=== PATIENT | female | born 1975 | race American Indian/Alaskan Native ===

== ENCOUNTER 2019-07-02 07:12 | Day surgery (SDC) | payer BC, OTHER ==
[2019-07-02] MEDS ORDERED: SODIUM CHLORIDE 0.9% 1000 ML 1,000 ML IV SCH (08:00)
[2019-07-02] MEDS ORDERED: PROPOFOL 200 MG/20 ML VIAL IV ONE ×2 (10:01→10:02)
[2019-07-02] MEDS ORDERED: fentaNYL 100 MCG/2 ML INJ ONE (10:03)
--- NOTE | 2019-07-02 10:20 | Procedure Note ---
Date of procedure: 07/02/19 Pre-op diagnosis: Dyspepsia/ H/O NSAID use Post-op diagnosis: other (Mild to Moderate Distal Erosive Esophagitis/Gastritis/R/O Eosinophilic Esophagitis/ R/O Celiac disease) Procedure: EGD with Biopsy Anesthesia: MAC Surgeon: PATTY FUNK Estimated blood loss: none Pathology: list Specimen disposition: to lab Condition: stable Disposition: same day (Treat with PPI and Baclofen. Avoid aspirin and NSAID for 4 days and follow up in 1 to 2 weeks ([phone]). Follow up in 1 to 2 weeks ([phone]).)
--- NOTE | 2019-07-02 10:28 | Operative Report ---
PROCEDURE: EGD with biopsy. INDICATIONS: This is a 44-year-old slightly obese -[place] female with a history of NSAID use, history of migraine who has been having dyspeptic symptoms in spite of being on PPI. She also has a family history of cancer. Procedure was done after getting informed consent with MAC anesthesia. Instrument was passed through the hypopharynx into the esophagus, which showed some mild to moderate distal erosive esophagitis. Biopsy was done from the midesophagus to rule out for eosinophilic esophagitis. Stomach showed antral erosion and gastritis. Biopsy was done from the gastric antrum, gastric body and angular incisura to rule out for H. pylori and atrophic gastritis. The pylorus is patent. The duodenum in the first and the second portion appeared normal. Biopsy was done from the second part to rule out for possible celiac disease. ASSESSMENT: Dyspepsia, history of NSAID use. Mild to moderate distal erosive esophagitis, gastritis, rule out eosinophilic esophagitis, rule out celiac disease. PLAN: Treat the patient with PPI as well as baclofen. Have the patient avoid aspirin and aspirin-related products for the next few days and follow up in the office in about 1-2 weeks' time. The procedure was done in the GI lab with assistance of the GI lab team, which included Marjorie SALOMON as well as Deni vidal and with assistance of anesthesia. JOB# [id number] TONI/DOMITILA
[2019-07-02 13:39] VITALS: BP 113/56
--- NOTE | 2019-07-02 15:08 | Anesthesia Day of Surgery ---
Anesthesia Day of Surgery - Day of Surgery Patient Examined: Yes Patient H&P Reviewed: Yes Patient is NPO: Yes Beta Blockers: No
--- NOTE | 2019-07-02 15:10 | Anesthesia Consultation ---
Anesthesia Consult and Med Hx Date of service: 07/02/19 - Airway Anesthetic Teeth Evaluation: Partials ROM Head & Neck: Adequate Mental/Hyoid Distance: Adequate Mallampati Class: Class III Intubation Access Assessment: Probably Good - Pulmonary Exam CTA: Yes - Cardiac Exam Cardiac Exam: RRR - Pre-Operative Health Status ASA Pre-Surgery Classification: ASA2 Proposed Anesthetic Plan: General - Pulmonary Hx Smoking: Yes Hx Asthma: Yes SOB: No - Cardiovascular System Hx Hypertension: No Hx Coronary Artery Disease: No Hx Heart Attack/AMI: No Hx Angina: No Hx Percutaneous Transluminal Coronary Angioplasty (PTCA): No Hx Cardia Arrhythmia: No Hx Pacemaker: No Hx Internal Defibrillator: No Hx Valvular Heart Disease: No Hx Heart Murmur: No Hx Peripheral Vascular Disease: No - Central Nervous System Hx Neuromuscular Disorder: No Hx Seizures: No CVA: No Hx Back Pain: No Hx Psychiatric Problems: No - Gastrointestinal Hx Ulcer: No Hx Gastroesophageal Reflux Disease: Yes (Severe but controlled w/ meds) - Endocrine Hx Renal Disease: No Hx End Stage Renal Disease: No Hx Cirrhosis: No Hx Non-Insulin Dependent Diabetes: No Hx Thyroid Disease: Yes Hx Hypothyroidism: Yes Hx Hyperthyroidism: Yes - Hematic Hx Anemia: No Hx Sickle Cell Disease: No - Other Systems Hx Alcohol Use: No Hx Substance Use: No Hx Cancer: No Hx Obesity: Yes
--- NOTE | 2019-07-02 23:12 | Post Anesthesia Evaluation ---
- Post Anesthesia Evaluation Patient Participated: Yes Airway Patent: Yes Stable Respiratory Function: Yes Nausea/Vomiting: No Temp > 96.8F: Yes Pain Manageable: Yes Adequeate Hydration: Yes Anesthesia Complications: No Block Receding Appropriately: Not Applicable Patient on Ventilator: No
== END 2019-07-02 07:13 | disposition home or self-care (01) ==
LOC: GIO 07:12
DX: K31.89 Other diseases of stomach and duodenum (principal); R10.13 Epigastric pain; K27.9 Peptic ulcer, site unspecified, unspecified as acute or chronic, without hemorrhage or perforation; E05.90 Thyrotoxicosis, unspecified without thyrotoxic crisis or storm; J45.909 Unspecified asthma, uncomplicated; K29.70 Gastritis, unspecified, without bleeding; G43.909 Migraine, unspecified, not intractable, without status migrainosus; E66.9 Obesity, unspecified; K21.0 Gastro-esophageal reflux disease with esophagitis; M19.90 Unspecified osteoarthritis, unspecified site; Z88.0 Allergy status to penicillin; Z79.899 Other long term (current) drug therapy; Z87.891 Personal history of nicotine dependence; Z68.37 Body mass index [BMI] 37.0-37.9, adult; Z90.710 Acquired absence of both cervix and uterus; Z98.891 History of uterine scar from previous surgery; Z98.890 Other specified postprocedural states; Z90.721 Acquired absence of ovaries, unilateral
CPT/HCPCS: 43239; 88305; 88342; J2704; J3010; J7030

== ENCOUNTER 2019-08-20 10:00 | Day surgery (SDC) | payer BC, OTHER ==
[2019-08-20] MEDS ORDERED: LIDOCAINE MPF (2%) 20 MG/1 ML VIAL 5 ML ONE (11:30)
[2019-08-20] MEDS ORDERED: SODIUM CHLORIDE 0.9% 1000 ML 1,000 ML IV SCH ×2 (12:00)
--- NOTE | 2019-08-20 12:33 | Anesthesia Consultation ---
Anesthesia Consult and Med Hx Date of service: 08/20/19 - Airway Anesthetic Teeth Evaluation: Good ROM Head & Neck: Adequate Mental/Hyoid Distance: Adequate Mallampati Class: Class II Intubation Access Assessment: Probably Good - Pulmonary Exam CTA: Yes - Cardiac Exam Cardiac Exam: RRR - Pre-Operative Health Status ASA Pre-Surgery Classification: ASA2 Proposed Anesthetic Plan: MAC - Pulmonary Hx Smoking: Yes (Quit 15 years ago) Hx Asthma: Yes (Seasonal; prn inhaler as needed) SOB: No - Cardiovascular System Hx Hypertension: No Hx Coronary Artery Disease: No Hx Heart Attack/AMI: No Hx Angina: No Hx Percutaneous Transluminal Coronary Angioplasty (PTCA): No Hx Cardia Arrhythmia: No Hx Pacemaker: No Hx Internal Defibrillator: No Hx Valvular Heart Disease: No Hx Heart Murmur: No Hx Peripheral Vascular Disease: No - Central Nervous System Hx Neuromuscular Disorder: No Hx Seizures: No CVA: No Hx Back Pain: No Hx Psychiatric Problems: No - Gastrointestinal Hx Ulcer: No Hx Gastroesophageal Reflux Disease: Yes (Severe but controlled w/ meds) - Endocrine Hx Renal Disease: No Hx End Stage Renal Disease: No Hx Cirrhosis: No Hx Non-Insulin Dependent Diabetes: No Hx Thyroid Disease: Yes Hx Hypothyroidism: Yes Hx Hyperthyroidism: Yes - Hematic Hx Anemia: No Hx Sickle Cell Disease: No - Other Systems Hx Alcohol Use: No Hx Substance Use: No Hx Cancer: No Hx Obesity: Yes
--- NOTE | 2019-08-20 12:33 | Anesthesia Day of Surgery ---
Anesthesia Day of Surgery - Day of Surgery Patient Examined: Yes Patient H&P Reviewed: Yes Patient is NPO: Yes Beta Blockers: No
[2019-08-20] MEDS ORDERED: PROPOFOL 200 MG/20 ML VIAL IV ONE ×2 (12:38→12:47)
--- NOTE | 2019-08-20 12:58 | Procedure Note ---
Date of procedure: 08/20/19 Pre-op diagnosis: Colon Polyp Screening/F/H/O Colon cancer (grandmother) Post-op diagnosis: other (Normal colon Mucosa( No Colon Polyp or diverticular disease or Internal Hemorrhoid noted)/Nomral Ileal Mucosa) Procedure: Colonoscopy Anesthesia: MAC Surgeon: PATTY FUNK Estimated blood loss: none Pathology: none Condition: stable Disposition: same day (Resume home medication and follow up in 1 to 2 weeks ([phone]).)
--- NOTE | 2019-08-20 13:01 | Operative Report ---
PROCEDURE: Colonoscopy. INDICATIONS: This is a 44-year-old -[place] female who has a family history of colon cancer. The patient's grandmother had colon cancer. Colonoscopy was done as part of colon polyp screening. DESCRIPTION OF PROCEDURE: Procedure was done after getting informed consent with MAC anesthesia. Initial rectal exam was unremarkable. Instrument was passed through the rectum onto the cecum, which was identified with ileocecal valve and the appendiceal orifice. Visualization was fair to good. The terminal ileum was intubated showed normal mucosa, cecum, ascending colon, transverse colon, descending colon, and sigmoid likewise showed normal mucosa. There was no evidence of any polyps, colitis, or diverticular disease. The rectum appeared normal on the retroverted view. There were no internal hemorrhoids noted. There was no bleeding associated with the procedure. No complications associated with the procedure. ASSESSMENT: Colon polyp screening, family history of cancer. The patient's grandmother had colon cancer, normal colon mucosa. No colon polyps, diverticular disease noted. No internal hemorrhoids noted. The patient will be asked to resume home medication and follow up in the office in 1-2 weeks' time. The procedure was done in the GI lab with assistance of the GI lab team, which included AIME Rondon as well as Roseline vidal and assistance of anesthesia. JOB# [id number] TONI/DOMITILA
[2019-08-20 13:33] VITALS: BP 130/70
== END 2019-08-20 10:01 | disposition home or self-care (01) ==
LOC: GIO 10:00
DX: Z12.11 Encounter for screening for malignant neoplasm of colon (principal); K57.30 Diverticulosis of large intestine without perforation or abscess without bleeding; G43.909 Migraine, unspecified, not intractable, without status migrainosus; J45.909 Unspecified asthma, uncomplicated; K21.9 Gastro-esophageal reflux disease without esophagitis; E66.9 Obesity, unspecified; M19.90 Unspecified osteoarthritis, unspecified site; E05.90 Thyrotoxicosis, unspecified without thyrotoxic crisis or storm; Z98.890 Other specified postprocedural states; Z80.0 Family history of malignant neoplasm of digestive organs; Z79.899 Other long term (current) drug therapy; Z87.891 Personal history of nicotine dependence; Z88.0 Allergy status to penicillin; Z90.710 Acquired absence of both cervix and uterus; Z90.721 Acquired absence of ovaries, unilateral; Z88.8 Allergy status to other drugs, medicaments and biological substances
CPT/HCPCS: 45378; J2704; J7030